=== PATIENT | female | born 2000 | race Caucasian/White ===

== ENCOUNTER 2024-08-28 12:54 | Emergency (ER) | payer OTHER, BC ==
[2024-08-28 13:09] VITALS: BP 120/80; PULSE 63; RESP 18; TEMP 99; BMI 31.5
[2024-08-28] MEDS ORDERED: ACETAMINOPHEN 500 MG TABLET (FP) ONE (14:08)
[2024-08-28] MEDS: ACETAMINOPHEN 500 MG TABLET (FP) PO ONE (14:36)
== END 2024-08-28 14:37 | disposition home or self-care (01) ==
LOC: JER 12:54 → JERFT 12:54
DX: S13.4XXA Sprain of ligaments of cervical spine, initial encounter (principal); M54.50 Low back pain, unspecified; V49.20XA Unspecified car occupant injured in collision with unspecified motor vehicles in nontraffic accident, initial encounter; Y92.410 Unspecified street and highway as the place of occurrence of the external cause
CPT/HCPCS: 99283-25